=== PATIENT | female | born 1970 | race Two or more races ===

== ENCOUNTER 2024-01-10 14:02 | Emergency (ER) | payer OTHER ==
[2024-01-10 14:09] VITALS: BP 120/52; PULSE 65; RESP 18; TEMP 97.9; BMI 25.4
[2024-01-10] MEDS ORDERED: ACETAMINOPHEN 500 MG TABLET (FP) ONE (15:00)
[2024-01-10] MEDS ORDERED: IBUPROFEN 400 MG TABLET (FP) PO ONE (15:00)
[2024-01-10] MEDS: IBUPROFEN 400 MG TABLET (FP) PO ONE (15:04)
[2024-01-10] MEDS: ACETAMINOPHEN 500 MG TABLET (FP) PO ONE (15:04)
== END 2024-01-10 15:52 | disposition home or self-care (01) ==
LOC: JERFT 14:02
DX: S93.402A Sprain of unspecified ligament of left ankle, initial encounter (principal); X50.1XXA Overexertion from prolonged static or awkward postures, initial encounter; Y93.01 Activity, walking, marching and hiking
CPT/HCPCS: 73590-TC-LT-FY; 73610-TC-LT-FY; 73630-TC-LT; 99284-25